=== PATIENT | male | born 1960 | race Caucasian/White ===

== ENCOUNTER 2025-02-26 08:23 | Outpatient (CLI) | payer OTHER, SELFPAY ==
--- NOTE | ~2025-02-26 | PE_ITS ---
EXAMINATION: PET_PETPSMAST_PT DATE: 02/26/2025 12:40 INDICATION: Prostate cancer TECHNIQUE: 5.078 mCi of Illucix Ga-68([id number]) was administered i.v. Low dose computed luis graphy (CT) images were acquired from the base of the brain to the base of the brain to the proximal thighs for attenuation correction and anatomic localization. Positron emission tomography (PET) image s were acquired in the same distribution beginning 87 minutes after injection. Images including fused PET/CT images were reconstructed in axial, coronal, and sagittal planes. Automated exposure control technique was employed. The dose-length product was 57600.45mGy-cm. COMPARISON: None FINDINGS: Head/neck: Typical pattern of symmetric physiologic increased activity in the lacrimal, parotid and submandibula r glands as well as along the mucosa of the nasal and oral cavities, pharynx and hypopharynx. No path ologically enlarged cervical lymphadenopathy or suspicious foci of increased uptake in the visualized head or neck. Chest: Lungs are clear with no suspicious pulmonary nodules, pneumonia, pulmonary edema or pleural effusion. Heart size is normal. Small amount of atherosclerotic coronary artery calcification. No pericardial effusion. Thoracic aorta is normal in caliber. Small sliding-type hiatal hernia. No pathologically en larged or PSMA avid thoracic lymphadenopathy. Abdomen/pelvis/proximal thighs: Physiologic renal accumulation and excretion of activity in the kidneys, bladder and along portions o f ureters. Prostatomegaly measuring 6.1 x 5.8 cm with large region of prominent increased uptake invo lving the majority of the right-sided the prostate portion of the left anterior prostate with maximal SUV of 33.1 consistent with primary prostate cancer. Normal degree and slightly heterogenous pattern of increased uptake throughout the liver and spleen without radiologic correlate or dominant PSMA av id lesion. The gallbladder, pancreas and bilateral adrenal glands are normal. Moderate uptake scatter ed throughout the bowels with typical duodenal and proximal jejunal predominance and without radiolog ic correlate, also likely physiologic. Moderate scattered diverticulosis without adjacent comparison to suggest diverticulitis. Normal appendix. Large bilobed fat-containing periumbilical hernia. No oth er abnormal foci of increased uptake or pathologically enlarged lymphadenopathy in the abdomen, pelvi s or proximal thighs. Musculoskeletal: There are bridging osteophytes at multiple levels in the thoracic and upper lumbar spine consistent w ith diffuse idiopathic skeletal hyperostosis (DISH). No suspicious lytic, blastic or abnormally PSMA avid bone lesions. IMPRESSION: 1. Enlarged prostate with large region of homogeneous increased activity involving the majority of th e right side and portions of the left anterior aspect of the prostate consistent with primary prostat e cancer. No evident metastatic disease. Reviewed, dictated and finalized at location A. IMPRESSION: 1. Enlarged prostate with large region of homogeneous increased activity involv ing the majority of the right side and portions of the left anterior aspect of the prostate consistent with primary prostate cancer. No evident metastatic dis ease.
--- OUTSIDE RECORDS SUMMARY | 2025-02-26 08:37 | XMS_ITS | Encounter Summary ---
Author Organization [facility] Address [address] [place] [address] Care Team Providers Care Line Haul Truck Driver Name Role Phone Moreno Vance MD Primary Care Provider [phone] Encounter Details Date Type Department Care Team (Late st Contact Info) Description 02/12/2025 Prep for Procedure [facility] [address] [place], [place] [id number] Celestino Emerson MD [address] [place], [place] [id number] Social History Tobacco Use Types Packs/Day Years Used Date Smoking Tobacco: Never Smokeless Tobacco: Never Alcohol Use Standard Drinks/Week Comments Never 0 (1 standard drink = 0.6 oz pur e alcohol) Sex and Gender Information Value Date Recorded Sex Assigned at Male 02/12/2025 12:04 PM CDT Legal Sex Male 8:22 PM CDT Gender Identity Not on file Sexual Orientation Not on file documented as of this encounter Functional Status * Calculated C-SSRS Risk Score (Lifetime/Recent) Answer Date of Assessment Author Status No Risk Indicated 02/12/2025 12:35 PM CDT Rea Lemus RN Active * [place] Suicide Severity Rating Scale (Screener/Recent Self-Report) Question Answer Date of Assessment Author Status 1. Wish to be (Past 1 Month) No 02/12/2025 12:35 PM CDT Rea Lemus RN Active 2. Non-Specific Active Suicidal Thoughts (Past 1 Month) No 02/12/2025 12:35 PM CDT Rea Lemus, RN Active 6. Suicidal Behavior (Lifetime) No 02/12/2025 12:35 PM CDT Rea Lemus, RN Active documented as of this encounter Plan of Treatment Not on file documented as of this encounter Results * (ABNORMAL) BASIC METABOLIC PANEL (02/12/2025 12:16 PM CDT) [facility] GLUCOSE 105(H) 70 - 99 MG/DL 02/12/2025 12:49 PM CDT [facility] BUN 13 7 - 18 MG/DL 02/12/2025 12:49 PM CDT [facility] CREATININE S/P/B 0.99 0.7 - 1.3 MG/DL 02/12/2025 12:49 PM CDT [facility] SODIUM S/P/B 136 136 - 145 MMOL/L 02/12/2025 12:49 PM CDT [facility] POTASSIUM S/P/B 4.1 3.5 - 5.1 MMOL/L 02/12/2025 12:49 PM CDT [facility] CHLORIDE S/P/B 105 97 - 115 MMOL/L 02/12/2025 12:49 PM CDT [facility] CO2 25.9 21 - 32 MMOL/L 02/12/2025 12:49 PM CDT [facility] CALCIUM S/P/B 9.9 8.5 - 10.1 MG/DL 02/12/2025 12:49 PM CDT [facility] ANION GAP 5.1 2 - 10 MMOL/L 02/12/2025 12:49 PM CDT [facility] BUN CREATININE RATIO 13.1 6 - 26 02/12/2025 12:49 PM CDT [facility] GFR ESTIMATE 85(L) >90 ML/MIN/1.7 3 M2 02/12/2025 12:49 PM CDT [facility] Comment: NOTE: eGFR is not calculated for patients <18 years of age or gender unknown. This is an estimated GFR calculation using the new CKD EPI creatinine equation without race and so does not require a correction factor for race. This estimated GFR should not be used for calculating drug doses. 02/12/2025 12:1 6 PM CDT [facility] Final R esult [facility] [address] [place] [address], documented in this encounter Visit Diagnoses Diagnosis Preoperative testing- Primary Preoperative examination, unspecified documented in this encounter Care Teams Line Haul Truck Driver Relationship Specialty Start Date End Date Moreno Vance MD [facility] [[email or web address]] [address] [place] [phone] PCP - General FAMILY PRACTICE 02/11/25 documented as of this encounter
--- OUTSIDE RECORDS SUMMARY | 2025-02-26 08:37 | XMS_ITS | Clinical Summary ---
Author Organization [facility] Address [address] [place] [address] Care Team Providers Care Singer And Unloader Name Role Phone Moreno Vance MD Primary Care Provider [phone] Allergies Active Allergy Reactions Criticality Noted Date Comments Penicillins Unknown 02/06/2025 Medications amLODIPine (NORVASC) 5 MG tablet Take 1 tablet (5 mg total) by mouth 2 (two) times a day. Active furosemide (LASIX) 20 MG tablet Take 1 tablet (20 mg total) by mouth daily. Active potassium chloride CR (KLOR-CON M) 10 MEQ tablet Take 1 tablet (10 mEq total) by mouth daily. Active Active Problems No known active problems Encounters Date Type Department Care Team Description 02/12/2025 2:18 PM CDT Anesthesia [place] [address] Mami Braden MD Jackson, Samantha Rae, FNP 02/12/2025 1:51 PM CDT - 02/12/2025 2:43 PM CDT Surgery [facility] [place] [address] Elaine Betts MD TRANSRECTAL ULTRASOUND GUIDED PROSTATE BIOPSY 02/12/2025 12:08 PM CDT - 02/12/2025 3:35 PM CDT Hospital Encounter [facility] [place] [address] Elaine Betts MD Discharge Disposition: Home or Self Care (Routine Discharge) 02/12/2025 Travel 02/12/2025 Prep for Procedure [facility] [place] [address] Elaine Betts MD 02/06/2025 Travel from Last 3 Months Social History Tobacco Use Types Packs/Day Years Used Date Smoking Tobacco: Never Smokeless Tobacco: Never Tobacco Cessation:Counseling Given: Not Answered Alcohol Use Standard Drinks/Week Comments Never 0 (1 standard drink = 0.6 oz pur e alcohol) Sex and Gender Information Value Date Recorded Sex Assigned at Male 02/12/2025 12:04 PM CDT Legal Sex Male 8:22 PM CDT Gender Identity Not on file Sexual Orientation Not on file Last Filed Vital Signs Vital Sign Reading Time Taken Comments Blood Pressure 175/91 02/12/2025 3:30 PM CDT Pulse 71 02/12/2025 3:30 PM CDT Temperature 36.4 C (97.5 F) 02/12/2025 3:30 PM CDT Respiratory Rate 18 02/12/2025 3:30 PM CDT Oxygen Saturation 99% 02/12/2025 3:30 PM CDT Inhaled Oxygen Concentration - - Weight 127.9 kg (281 lb 15.5 oz) 2024 12:35 PM CDT Height 165.1 cm (5' 5 ) 02/12/2025 12:3 5 PM CDT Body Mass Index 46.92 02/12/2025 12:35 PM CDT Plan of Treatment Health Maintenance Due Date Last Done Comments Colorectal Cancer Screening Colonoscopy (10 Years) 1960 Annual Physical 1963 Hepatitis C 1978 DTaP, Tdap and Td Vaccines ( 1 - Tdap) 1979 Pneumococcal Vaccine: 50+ Ye ars (1 of 1 - PCV) 2010 Zoster Vaccines (1 of 2) 2010 RSV Immunization or 60+ Years (1 - Risk 60-74 years 1-dose series) 2020 COVID-19 Vaccine ( - 2023-2 5 season) 2024 Meningococcal B Vaccine Aged Out No l onger eligible based on patient's age to complete this topic Meningococcal Vaccine Aged Out No zohra omer eligible based on patient's age to complete this topic RSV Immunizations Under 20 Months Aged Out No longer eligible based on patient's age to complete this topic Procedures Procedure Name Priority Date/Time Associated Diagnosis Comments BIOPSY OF PROSTATE,NEEDLE/P [facility] 02/12/2025 2:16 PM CDT PSA ELEVATION R97.20 Case Notes SCHED BY FAX ON 02/05/25 [facility] PHONE [facility]ESS Special Needs [facility] [phone] BASIC METABOLIC PANEL Routine 02/12/2025 12:16 PM CDT Preoperative testing PATHOLOGY Routine 02/12/2025 12:00 AM CDT from Last 3 Months Results * (ABNORMAL) BASIC METABOLIC PANEL (02/12/2025 12:16 PM CDT) GLUCOSE 105(H) 70 - 99 MG/DL 02/12/2025 12:49 PM CDT [facility] BUN 13 7 - 18 MG/DL 02/12/2025 12:49 PM CDT [facility] CREATININE S/P/B 0.99 0.7 - 1.3 MG/DL 02/12/2025 12:49 PM CDT [facility] SODIUM S/P/B 136 136 - 145 MMOL/L 02/12/2025 12:49 PM CDT [facility] POTASSIUM S/P/B 4.1 3.5 - 5.1 MMOL/L 02/12/2025 12:49 PM CDT [facility] CHLORIDE S/P/B 105 97 - 115 MMOL/L 02/12/2025 12:49 PM CDT [facility] CO2 25.9 21 - 32 MMOL/L 02/12/2025 12:49 PM CDT [facility] CALCIUM S/P/B 9.9 8.5 - 10.1 MG/DL 02/12/2025 12:49 PM CDT [facility] ANION GAP 5.1 2 - 10 MMOL/L 02/12/2025 12:49 PM CDT [facility] BUN CREATININE RATIO 13.1 6 - 26 02/12/2025 12:49 PM CDT [facility] GFR ESTIMATE 85(L) >90 ML/MIN/1.7 3 M2 02/12/2025 12:49 PM CDT [facility] Comment: NOTE: eGFR is not calculated for patients <18 years of age or gender unknown. This is an estimated GFR calculation using the new CKD EPI creatinine equation without race and so does not require a correction factor for race. This estimated GFR should not be used for calculating drug doses. 02/12/2025 12:1 6 PM CDT [facility]y [facility] Final R esult [facility] [address] [place] [address], * Pathology (02/12/2025 12:00 AM CDT) PATHOLOGY [facility] Department of Laboratory Medicine [address] [place] [phone] , [id number] Pathology Report Surgical Pathology Report Name: BOGDNA RODRIGUEZ Specimen #: [id number] Age: 2 1960 (Age: 64) Location: [facility] Sex: M Procedure Date: 02/12/2025 Hospital #: [id number] Date Received: 02/13/2025 Date Reported: 02/14/2025 Provider: ELAINE BETTS MD Source: A: Prostate, right lateral base, needle biopsy B: Prostate, right medial base, needle biopsy C: Prostate, right lateral mid, needle biopsy D: Prostate, right medial mid, needle biopsy E: Prostate, right lateral apex, needle biopsy F: Prostate, right medial apex, needle biopsy G: Prostate, left lateral base, needle biopsy H: Prostate, left medial base, needle biopsy I: Prostate, left lateral mid, needle biopsy J: Prostate, left medial mid, needle biopsy K: Prostate, left lateral apex, needle biopsy L: Prostate, left medial apex, needle biopsy Clinical History: PSA elevation. FINAL DIAGNOSIS: A. Prostate, right lateral base, needle biopsy: - Benign prostatic tissue. B. Prostate, right medial base, needle biopsy: - Benign prostatic tissue. C. Prostate, right lateral mid, needle biopsy: - Adenocarcinoma (Luke 3+3=6, grade group 1) involving approximately 30% of the specimen. - No perineural invasion or extraprostatic extension identified. D. Prostate, right medial mid, needle biopsy: - Adenocarcinoma (Luke 3+3=6, grade group 1) involving approximately 50% of the specimen. - No perineural invasion or extraprostatic extension identified. E. Prostate, right lateral apex, needle biopsy: - Adenocarcinoma (Luke 5+3=8, grade group 4) involving approximately 80% of the specimen. - Perineural invasion is present. - No extraprostatic extension identified. F. Prostate, right medial apex, needle biopsy: - Adenocarcinoma (Luke 4+3=7, grade group 3) involving approximately 50% of the specimen. - No perineural invasion or extraprostatic extension identified. G. Prostate, left lateral base, needle biopsy: - Benign prostatic tissue. H. Prostate, left medial base, needle biopsy: - Benign prostatic tissue. I. Prostate, left lateral mid, needle biopsy: - Benign prostatic tissue. J. Prostate, left medial mid, needle biopsy: - Benign prostatic tissue. K. Prostate, left lateral apex, needle biopsy: - Benign prostatic tissue. L. Prostate, left medial apex, needle biopsy: - Benign prostatic tissue. Gross Description: A. Received in formalin, labeled with a patient label and as right lateral base is a single less than 0.1 cm in diameter delicate white-nixon tissue core that has a length of 1.5 cm. The specimen is entirely submitted in cassette A1. B. Received in formalin, labeled with a patient label and as right medial base is a single less than 0.1 cm in diameter delicate white-nixon tissue core that has a length of 1.3 cm. The specimen is entirely submitted in cassette B1. C. Received in formalin, labeled with a patient label and as right lateral mid is a single less than 0.1 cm in diameter delicate white-nixon tissue core has a length of 1.5 cm. The specimen is entirely submitted in cassette C1. D. Received in formalin, labeled with a patient label and as right medial mid is a single less than 0.1 cm in diameter delicate white-nixon tissue core has a length of 1.7 cm. The specimen is entirely submitted in cassette D1. E. Received in formalin, labeled with a patient label and as right lateral apex is a single less than 0.1 cm in diameter delicate white-nixon tissue core that has a length of 1.5 cm. The specimen is entirely submitted in cassette E1. F. Received in formalin, labeled with a patient label and as right medial apex are 2 less than 0.1 cm in diameter delicate white-nixon tissue cores 0.6 and 0.8 cm in length. The specimen is entirely submitted in cassette F1. G. Received in formalin, labeled with a patient label and as left lateral base is a single less than 0.1 cm in diameter delicate white-nixon tissue core that has a length of 1.2 cm. The specimen is entirely submitted in cassette G1. H. Received in formalin, labeled with a patient label and as left medial base is a single less than 0.1 cm in diameter delicate white-nixon tissue core that has a length of 1.8 cm. The specimen is entirely submitted in cassette H1. I. Received in formalin, labeled with a patient label and as left lateral mid is a single less than 0.1 cm in diameter delicate white-nixon tissue core that has a length of 1.3 cm. The specimen is entirely submitted in cassette I1. J. Received in formalin, labeled with a patient label and as left medial mid is a single less than 0.1 cm in diameter delicate white-nixon tissue core has a length of 1.0 cm. The specimen is entirely submitted in cassette J1. K. Received in formalin, labeled with a patient label and as left lateral apex is a single less than 0.1 cm in diameter delicate white-nixon tissue core that has a length of 1.5 cm. The specimen is entirely submitted in cassette K1. L. Received in formalin, labeled with a patient label and as left medial apex are 2 less than 0.1 cm in diameter delicate white-nixon tissue cores 0.3 and 0.7 cm in length. The specimen is entirely submitted in cassette L1. Gross examination (when applicable), interpretation, and sign out were performed at [facility], [address], [place] [address]. Electronically Signed Out IRAIDA FALK MD [facility] TISSUE PROSTATE / Unknown 1:19 PM CDT Tissue specimen (specimen) PROSTATE / Unknown 02/12/2025 1:19 PM CDT Tissue specimen (specimen) PROSTATE / Unknown 02/12/2025 1:19 PM CDT Tissue specimen (specimen) PROSTATE / Unknown 02/12/2025 1:19 PM CDT Tissue specimen (specimen) PROSTATE / Unknown 02/12/2025 1:19 PM CDT Tissue specimen (specimen) PROSTATE / Unknown 02/12/2025 1:19 PM CDT Tissue specimen (specimen) PROSTATE / Unknown 02/12/2025 1:19 PM CDT Tissue specimen (specimen) PROSTATE / Unknown 02/12/2025 1:19 PM CDT Tissue specimen (specimen) PROSTATE / Unknown 02/12/2025 1:19 PM CDT Tissue specimen (specimen) PROSTATE / Unknown 02/12/2025 1:19 PM CDT Tissue specimen (specimen) PROSTATE / Unknown 02/12/2025 1:19 PM CDT Tissue specimen (specimen) PROSTATE / Unknown 02/12/2025 1:19 PM CDT Elaine Betts MD PATHOLOGY/CYTOLOGY ORDERABLES nal Result [facility] [address] [place] [id number], [id number] from Last 3 Months Insurance [facility] Care Teams Singer And Unloader Relationship Specialty Start Date End Date Moreno Vance MD [address] [place] [phone] PCP - General FAMILY PRACTICE 02/11/25
== END 2025-02-26 08:24 | disposition home or self-care (01) ==
PROVIDERS: PCP Family Medicine; Visit Provider Urology
DX: C61 Malignant neoplasm of prostate (principal)
CPT/HCPCS: 78815; A9596

== ENCOUNTER 2025-04-17 07:19 | Outpatient (CLI) | payer OTHER, SELFPAY ==
--- NOTE | ~2025-04-17 | MR_ITS ---
EXAMINATION: MR pelvis wo/w con DATE: 04/17/2025 09:28 INDICATION: Prostate cancer TECHNIQUE: Magnetic resonance imaging (MRI) of the pelvis was performed without and with 20 mL Multih ance intravenous contrast. Fullfield sequences of the pelvis included axial and coronal T2-weighted S S FSE, axial, sagittal and coronal 2D FIESTA, axial 2D FIESTA FS, axial SSFSE-IR SANTIAGO, axial dual-echo T1-weighted FSPGR, axial and coronal T1 weighted LAVA, 3D axial T2 Cube, axial diffusion-weighted SE with apparent diffusion coefficient (ADC) maps. Postcontrast sequences included a time course axial T1-weighted LAVA and sagittal and coronal T1-weighted LAVA. COMPARISON: The [facility]MA PET study dated 02/26/2025 FINDINGS: The prostate has significantly decreased in size, currently measuring 5.0 x 3.9 cm versus previously measuring 6.1 x 5.9 cm likely reflecting response to treatment. There are couple foci of susceptibili ty artifact bilaterally in the posterior peripheral zone which could represent fiducial markers, surg ical clips or radiotherapy stroke bladder is normal. Visualized portions of the bowels are unremarkab le. No pathologically enlarged pelvic or inguinal lymphadenopathy. Bone marrow signal is normal with no abnormally enhancing lesions identified. IMPRESSION: 1. Mild prostatomegaly, decreased in size since the prior study consistent with interval response to treatment of known prostate cancer. No evident metastatic disease. Reviewed, dictated and finalized at location A.
--- OUTSIDE RECORDS SUMMARY | 2025-04-17 07:23 | XMS_ITS | Encounter Summary ---
Author Organization [facility] Address [address] [place] [address] Care Team Providers Care Harness Inspector Name Role Phone Moreno Vance MD Primary Care Provider [phone] Encounter Details Date Type Department Care Team (Late st Contact Info) Description 02/12/2025 Prep for Procedure [facility] [address] [place], [place] [id number] Celestino Emerson MD [address] [place], [place] [id number] Social History Tobacco Use Types Packs/Day Years [...] PM CDT Rea Lemus RN Active * [place] Suicide Severity Rating Scale (Screener/Recent Self-Report) Question [...] BASIC METABOLIC PANEL (02/12/2025 12:16 PM CDT) [facility] GLUCOSE 105(H) 70 - 99 MG/DL 02/12/2025 12:49 PM CDT [facility] BUN 13 7 - 18 MG/DL 02/12/2025 12:49 PM CDT [facility] CREATININE S/P/B 0.99 0.7 - 1.3 MG/DL 02/12/2025 12:49 PM CDT [facility] SODIUM S/P/B 136 136 - 145 MMOL/L 02/12/2025 12:49 PM CDT [facility] POTASSIUM S/P/B 4.1 3.5 - 5.1 MMOL/L 02/12/2025 12:49 PM CDT [facility] CHLORIDE S/P/B 105 97 - 115 MMOL/L 02/12/2025 12:49 PM CDT [facility] CO2 25.9 21 - 32 MMOL/L 02/12/2025 12:49 PM CDT [facility] CALCIUM S/P/B 9.9 8.5 - 10.1 MG/DL 02/12/2025 12:49 PM CDT [facility] ANION GAP 5.1 2 - 10 MMOL/L 02/12/2025 12:49 PM CDT [facility] BUN CREATININE RATIO 13.1 6 - 26 02/12/2025 12:49 PM CDT [facility] GFR ESTIMATE 85(L) >90 ML/MIN/1.7 3 M2 02/12/2025 12:49 PM CDT [facility] Comment: NOTE: eGFR is not calculated for patients <18 years of age or gender unknown. This is an estimated GFR calculation using the new CKD EPI creatinine equation without race and so does not require a correction factor for race. This estimated GFR should not be used for calculating drug doses. 02/12/2025 12:1 6 PM CDT Susy [facility] Final R esult [facility] [address] [place] [address], documented in this encounter Visit Diagnoses Diagnosis Preoperative testing- Primary Preoperative examination, unspecified documented in this encounter Care Teams Harness Inspector Relationship Specialty Start Date End Date Moreno Vance MD [facility] [address] [place] [phone] PCP - General FAMILY PRACTICE 02/11/25 documented as of this encounter
--- OUTSIDE RECORDS SUMMARY | 2025-04-17 07:23 | XMS_ITS | Clinical Summary ---
Author Organization [facility] Address [address] [place] [address] Care Team Providers Care Surgical Supplies Sterilizer Name Role Phone Moreno Vance MD Primary Care Provider Allergies Active Allergy Reactions Criticality Noted Date [...] Description 02/12/2025 2:18 PM CDT Anesthesia [place] [address] Mami Braden MD Jackson, Samantha Rae, FNP 02/12/2025 1:51 PM CDT - 02/12/2025 2:43 PM CDT Surgery [place] [address] Elaine Betts MD TRANSRECTAL ULTRASOUND GUIDED PROSTATE BIOPSY 02/12/2025 12:08 PM CDT - 02/12/2025 3:35 PM CDT Hospital Encounter [facility] [place] [address] Elaine Betts MD Discharge Disposition: Home or Self Care (Routine Discharge) 02/12/2025 Travel 02/12/2025 Prep for Procedure [facility] [address] Elaine Betts MD 02/06/2025 Travel from Last [...] 12:35 PM CDT Height 165.1 cm (5' 5) 02/12/2025 12:3 5 PM CDT Body Mass [...] Case Notes SCHED BY FAX ON 02/05/25 [facility] PHONE ASSESS Special Needs [facility] [phone] BASIC METABOLIC PANEL Routine 02/12/2025 12:16 PM CDT Preoperative testing PATHOLOGY Routine 02/12/2025 12:00 AM CDT from Last 3 Months Results * (ABNORMAL) BASIC METABOLIC PANEL (02/12/2025 12:16 PM CDT) GLUCOSE 105(H) 70 - 99 MG/DL 02/12/2025 12:49 PM CDT [facility] BUN 13 7 - 18 MG/DL 02/12/2025 12:49 PM CDT [facility] CREATININE S/P/B 0.99 0.7 - 1.3 MG/DL 02/12/2025 12:49 PM CDT [facility] SODIUM S/P/B 136 136 - 145 MMOL/L 02/12/2025 12:49 PM CDT [facility] POTASSIUM S/P/B 4.1 3.5 - 5.1 MMOL/L 02/12/2025 12:49 PM CDT [facility] CHLORIDE S/P/B 105 97 - 115 MMOL/L 02/12/2025 12:49 PM CDT [facility] CO2 25.9 21 - 32 MMOL/L 02/12/2025 12:49 PM CDT [facility] CALCIUM S/P/B 9.9 8.5 - 10.1 MG/DL 02/12/2025 12:49 PM CDT [facility] ANION GAP 5.1 2 - 10 MMOL/L 02/12/2025 12:49 PM CDT [facility] BUN CREATININE RATIO 13.1 6 - 26 02/12/2025 12:49 PM CDT [facility] GFR ESTIMATE 85(L) >90 ML/MIN/1.7 3 M2 02/12/2025 12:49 PM CDT [facility] Comment: NOTE: eGFR is not calculated for patients <18 years of age or gender unknown. This is an estimated GFR calculation using the new CKD EPI creatinine equation without race and so does not require a correction factor for race. This estimated GFR should not be used for calculating drug doses. 02/12/2025 12:1 6 PM CDT Susy Royal [facility] Final R esult [facility] [address] [place] [address], * Pathology (02/12/2025 12:00 AM CDT) PATHOLOGY [facility] Department of Laboratory Medicine [address] [place] [id number] , [email or web address] [id number] Pathology Report Surgical Pathology Report Name: BOGDAN RODRIGUEZ Specimen #: [id number] Age: 2 1960 (Age: 64) Location: [facility] Sex: M Procedure Date: 02/12/2025 Hospital #: [id number] Date Received: 02/13/2025 Date Reported: 02/14/2025 Provider: [...] right lateral apex, needle biopsy: - Adenocarcinoma (Cambridge 5+3=8, grade group 4) involving approximately 80% of the specimen. - Perineural invasion is present. - No extraprostatic extension identified. F. Prostate, right medial apex, needle biopsy: - Adenocarcinoma (Cambridge 4+3=7, grade group 3) involving approximately 50% [...] interpretation, and sign out were performed at [facility], [address], [place] [address]. Electronically Signed Out IRAIDA FALK MD [facility] TISSUE PROSTATE / Unknown 1:19 [...] Elaine Betts MD PATHOLOGY/CYTOLOGY ORDERABLES nal Result [facility] [address] [place] [id number], [id number] from Last 3 Months Insurance [facility] Care Teams Surgical Supplies Sterilizer Relationship Specialty Start Date End Date Moreno Vance MD [address] [place] [id number] PCP - General FAMILY PRACTICE 02/11/25
--- OUTSIDE RECORDS SUMMARY | 2025-04-17 07:23 | XMS_ITS | Continuity of Care Document ---
Author Organization [place] [facility] Address [address] [address] Assessment No assessment recorded. Plan of Treatment Reminders Order Date Submit Date Provider Last Modified By Organization Details Last Modified Time Details Appointments ANY 2024 07:45A Derik Vance MD Not available Not available Not available ANY 2025 07:30A Derik Vance MD Not available Not available Not available Lab TSH, serum or plasma 2024 025 [email or web address] [facility] (Lab), [address] [place], [address], 04/16/2025 08:32:19 T3, free, serum or plasma 2024 025 [email or web address] [facility] (Lab), [address] [place], [address], 04/16/2025 08:32:19 T4, free, serum 2024 025 [email or web address] [facility] (Lab), [address] [place], [address], 04/16/2025 08:32:19 Referral None recorded. Procedures None recorded. Surgeries None recorded. Imaging None recorded. Medication Orders Norvasc 5 mg tablet 2024 025 [facility], [address] [place] [address], [address], 04/16/2025 08:37:48 furosemid e 20 mg tablet 2024 025 [facility], [address] [place], [address], 04/16/2025 08:37:48 potassium chloride ER 10 mEq tablet,ex tended release 2024 025 [facility], [address] [place], [address], 04/16/2025 08:37:48 Patient TargetsNo targets recorded. Patient InstructionsNo instructions recorded. Reason for Referral None Reported. Problems Name Problem SNOMED Code Status Onset Date Resolution Date Notes Provider Name and Address Organization Details Recorded Time Benign essential hypertension 4789308 Active 2022 Moreno Vance MD Attn: Rex gastelum,[address] [facility], [place], [address], [place] [facility] 3 10:22:21 Morbid obesity 051224218 Active 2022 Moreno Vance MD Attn: Michellein g,[address] [facility], [place], [address], [place] [facility] 3 10:22:22 Osteoarthritis of knee 845885943 Active 2022 Moreno Vance MD Attn: Michellein g,[address] [facility], [place], [address], [place] [facility] 3 09:10:33 Bilateral lower leg edema 362316350 Active 2023 Moreno Vance MD Attn: Michellein g,[address] [facility], [place], [address], [place] [facility] 4 08:30:22 Body mass index 40+ - severely obese 347661907 Active 2024 Moreno Vance MD Attn: Rex g,[address] [facility], [place], [address], [place] [facility] 5 08:26:55 Malignant neoplasm of prostate 241835642 Active 2024 Moreno Vance MD Attn: Rex gastelum,[address], [place], [address], [facility] 5 08:27:39 Problem Notes None recorded. Procedures Surgical History Date Name Laterality Status Provider Name and Address Organization Details Recorded Time Hernia Repair completed Olga Colon RN [facility] 12/09/2022 10:01:15 Imaging Results None recorded. Procedure Notes None recorded. Medical Equipment None Reported. Allergies Allergen ID Allergen Name Allergen Category Reaction Reaction Severity Criticality Documentation Date Start Date Code Code System Note Provider Name and Address Organization Details Recorded Time 340183 Product containin g penicilli n (product) medicatio n Not available Not available Not available 12/09/2022 30678 8001 SNOMED not sure of react ion Olga Colon RN null, [facility] 3 09:56:18 Medications Name Sig Start Date Stop Date Status Note LastModified by Organization Details LastModified Time doxycycline hyclate 100 mg capsule TAKE 1 CAPSULE BY MOUTH TWICE A DAY FOR 10 DAYS 12/09 completed Not Available Not Available Not Available clindamycin HCl 300 mg capsule TAKE ONE CAPSULE BY MOUTH EVERY 6 HOURS 07/19 completed Not Available Not Available Not Available ibuprofen 800 mg tablet Take 1 tablet 3 times a day by oral route as needed for 30 days. 07/15 completed Not Available Not Available Not Available prednisone 20 mg tablet TAKE 2 TABLETS BY MOUTH EVERY DAY FOR 5 DAYS 12/09 completed Not Available Not Available Not Available clindamycin HCl 150 mg capsule 01/18 completed Not Available Not Available Not Available potassium chloride ER 10 mEq tablet,exte nded release Take 1 tablet every day by oral route for 90 days. 2024 active Not Available Not Available Not Avai lable triamcinolo ne acetonide 40 mg/mL suspension for injection Take 120 mg by injection route. 04/16 completed Not Available Not Available Not Available Norvasc 5 mg tablet Take 1 tablet twice a day by oral route in the morning for 90 days. 2024 active Not Available Not Available Not Avai lable furosemide 20 mg tablet Take 1 tablet every day by oral route for 90 days. 2024 active Not Available Not Available Not Avai lable albuterol sulfate HFA 90 mcg/actuati on aerosol inhaler TAKE 1-2 PUFF(S) (INHALATI ON) EVERY 4 HOURS NEEDED - WHEEZING 12/09 completed Not Available Not Available Not Available Vitals Date Recorded Body height Body mass index (BMI) Body weight Oxygen saturation Oxygen saturation in Arterial blood by Pulse oximetry Heart rate Systolic blood pressure Diastolic blood pressure Provider Name and Address Organization Details Last Updated DateTime 5 167.64 cm 46.8 kg/m2 672651. 79 g 96 % 96 % 77 /min 130 mm[Hg] 92 mm[Hg] Ina Bennett [facility] 5 08:20:09 Social History Question Answer Notes LastModified by [employer] 3d ion Details LastModified Time Tobacco Smoking Status Never Smoker Olga Colon RN [facility], [facility] 12/09/2022 09:52:38 What Is Your Level Of Caffeine Consumption? Occasional Information not available 12/09/2022 What Was The Date Of Your Most Recent Tobacco Screening? 04/16/2025 Information not available 04/16/2025 Has Tobacco Cessation Counseling Been Provided? No Information not available 12/09/2022 Sex: Unknown Functional Status Question Answer Note LastModified by Organizat ion Details LastModified Time Do you use any illicit or recreational drugs? No Information not available 12/09/2022 Do you or have you ever used any other forms of tobacco or nicotine? No Information not available 12/09/2022 What is your level of alcohol consumption? None Information not available 12/09/2022 Mental Status None recorded. Family History Relationship Description Onset Age of this Age Resolved Age Notes LastModified by Organization Details LastModified Time Father Myocardial infarction [email or web address] Not available 12/09 10:00:34 Father Harmful pattern of use of alcohol [email or web address] Not available 2022 10:00:41 Mother Harmful pattern of use of alcohol [email or web address] Not available 12/2023 11:24:21 Mother Diabetes mellitus [email or web address] Not available 12/2023 11:24:34 Medical History Condition Response Coronary Artery Disease N Other N Atrial Fibrillation N High Blood Pressure Y Thyroid Problems N Kidney or Bladder Problems N GI Problems N Depression N COPD N Blood Clots N Eating Disorder N Skin Problems N Anemia N Heart Attack (AR) N Anxiety Disorder N Diabetes N Muscle, Joint, or Bone Problems N Seizures/Epilepsy N Acid Reflux (GERD) N Cancer N Stroke N Asthma N Allergies N ADHD N Substance Abuse N High Cholesterol N Hepatitis N Liver Disease N Schizophrenia N Headaches N Heart Failure N Osteoporosis N Past Encounters Encounter ID Performer Location Encounter Start Date Encounter Closed Date Diagnosis/Indication Diagnosis SNOMED-CT Code Diagnosis ICD10 Code Diagnosis Note [id number] Moreno Vance MD [facility] [place] [facility] [place] [address] [facility] [address] [place] [address] 04/16/2025 08:14:20 04/16/2025 08:39:21 Benign essential hypertension 2487588 I10 condition chronic and at goal with bp at goal with home monitor normal contniue the norvasc 5 mg bid continue the lasix and kcl Body mass index 40+ - severely obese 023903216 E66.01 condition chronic and not at goal start 1800 ada alan diet. start low fat diet order tsh, t3, t4 Osteoarthr itis of knee 961634920 M17.9 condition chroinc and not at goal continue the motrin Bilateral lower leg edema 694785356 R60.0 conditon chronic and at goal order lasix 20 mg and kcl 10 meq per day Malignant neoplasm of prostate 221449964 C61 conditon acute continue treatement with urology Health Concerns Section Related Observation LastModified by Organization Detai ls LastModified Time None Recorded Concern Status LastModified by Organization Details LastModified Time None Recorded Payers Encounter Date Sequence Insurance Name Policy Number Policy Vang Covered Member ID Vang Member ID Guarantor Name 04/16/2025 1 [facility] [id number] Sukhi Craig [id number] Sukhi Craig Notes Date Note Type Note Provider Name and Address Organization Details Recorded Time 04/16/2025 text/html states that the htn is mildly elevated has been watching his diet. the oa in the knees are worse. is being treated from prostate cancer the swelling in the legs is unchanged. Moreno Vance MD Attn: [employer]ing,[address] [place], [address], [place] [facility] 04/16/2025 08:39:18
--- OUTSIDE RECORDS SUMMARY | 2025-04-17 07:23 | XMS_ITS | Data Portability ---
Author Organization [facility] Address [address] [place] [address] Assessment No assessment recorded. Plan of Treatment Reminders Order Date Submit Date Provider Last Modified By Organization Details Last Modified Time Details Appointments ANY 2024 07:45A Derik Vance MD Not available Not available Not available ANY 2025 07:30A Derik Vance MD Not available Not available Not available Lab TSH, serum or plasma [address] (Lab), [address] [place], [address], 04/16/2025 08:32:19 T3, free, serum or plasma [address] (Lab), [address] [place], [address], 04/16/2025 08:32:19 T4, free, serum [address] (Lab), [address] [place], [address], 04/16/2025 08:32:19 PSA, serum or plasma 2024 025 [facility] (Lab), [address], [address], 01/17/2025 08:12:05 lipid panel, serum 2024 025 [facility] (Lab), [address], [place], [address], 01/16/2025 08:55:50 noninvasi ve colorecta l cancer DNA + occult blood screening , QL, stool 2024 025 [facility] (Cologuard Orders Only), [address], [address], [place], [address], 02/05/2025 04:07:52 CBC w/ auto diff 2024 025 [facility] (Lab), [address], [place], [address], 01/16/2025 08:55:43 CMP, serum or plasma 2024 025 [facility] (Lab), [address], [place], [address], 01/16/2025 08:55:49 Referral None recorded. Procedures None recorded. Surgeries None recorded. Imaging None recorded. Medication Orders Norvasc 5 mg tablet 2024 025 [facility], [address] [place] [address], [id number], 04/16/2025 08:37:48 furosemid e 20 mg tablet 2024 025 [facility], [address] [place] [address], [id number], 04/16/2025 08:37:48 potassium chloride ER 10 mEq tablet,ex tended release 2024 025 [facility], [address] [place] [address], [id number], 04/16/2025 08:37:48 triamcino lone acetonide 40 mg/mL suspensio n for injection 2024 025 [email or web address] [facility], [address] [place] [address], [id number], 04/16/2025 08:18:14 triamcino lone acetonide 40 mg/mL suspensio n for injection 2023 [email or web address] Not available 04/16/2025 08:18:14 Norvasc 5 mg tablet 2023 [facility], [address] [place] [address], [address], 07/29/2024 10:05:16 furosemid e 20 mg tablet 2023 024 [facility], [address] [place] [address], [id number], 07/29/2024 10:05:18 potassium chloride ER 10 mEq tablet,ex tended release 2023 024 [facility], [address] [place] [address], [address], 03/26/2025 16:57:13 Norvasc 5 mg tablet 2023 024 [facility], [address] [place] [address], [address], 03/26/2025 16:57:14 furosemid e 20 mg tablet 2023 024 [facility], [address] [place] [address], [address], 03/26/2025 16:57:13 potassium chloride ER 10 mEq tablet,ex tended release 2023 024 [facility], [address] [place] [address], [address], 02/12/2025 17:56:49 ibuprofen 800 mg tablet 2022 024 [facility], [address] [place] [address], [address], 07/15/2024 14:27:38 Norvasc 5 mg tablet 2022 023 [facility], [address] [place] [address], [id number], 08/26/2023 10:17:48 Patient TargetsNo targets recorded. Patient Instructions Encounter Date Encounter Id Patient Instructions Last Modified By Organization Details Last Modified Time 07/19/2023 [id number] A healthy lifestyle: care instructions Not available 07/19/2023 09:27:45 01/17/2024 [id number] A healthy lifestyle: care instructions Not available 01/17/2024 09:11:21 01/15/2025 [id number] A healthy lifestyle: care instructions Not available 01/15/2025 08:47:15 Reason for Referral None Reported. Results Created Date Observation Date Name Description Value Unit Range Abnormal Flag Note LastModifiedBy Organization Detail LastModifiedTime 01/16/2001/15/2025 COMPR EHENS JEFFREY METAB OLIC PANEL sodium 139 mmol/ L 134-14 4 normal Not Available [facility] (Lab) [address] [place], [address], 01/15/2025 22:40:11 01/16/20 25 01/15/2025 COMPR EHENS JEFFREY METAB OLIC PANEL potassium 4.6 mmol/ L 3.5-5. 2 normal Not Available [facility] (Lab) [address] [place], [address], 01/15/2025 22:40:11 01/16/20 25 01/15/2025 COMPR EHENS JEFFREY METAB OLIC PANEL chloride 103 mmol/ L 96-106 normal Not Available [facility] (Lab) [address] [place], [address], 01/15/2025 22:40:11 01/16/20 25 01/15/2025 COMPR EHENS JEFFREY METAB OLIC PANEL carbon dioxide 25 mmol/ L 20-29 normal Not Available [facility] (Lab) [address] [place], [address], 01/15/2025 22:40:11 01/16/20 25 01/15/2025 COMPR EHENS JEFFREY METAB OLIC PANEL anion gap 16.0 mmol/ L Not Available [facility] (Lab) [address] [place], [address], 01/15/2025 22:40:11 01/16/20 25 01/15/2025 COMPR EHENS JEFFERY METAB OLIC PANEL blood urea nitrogen 10 mg/dL 8-27 normal Not Available [facility] (Lab) [address] [place], [address], 01/15/2025 22:40:11 01/16/20 25 01/15/2025 COMPR EHENS JEFFREY METAB OLIC PANEL creatinine 0.91 mg/dL 0.76-1 .27 normal Not Available [facility] (Lab) [address], [place], [address], 01/15/2025 22:40:11 01/16/20 25 01/15/2025 COMPR EHENS JEFFREY METAB OLIC PANEL glomerular filtration rate 94 mL/mi n/1 Not Available [facility] (Lab) [address] [place], [address], 01/15/2025 22:40:11 01/16/20 25 01/15/2025 COMPR EHENS JEFFREY METAB OLIC PANEL BUN creatinine ratio 11 10-24 normal Not Available [facility] (Lab) [address] [place], [address], 01/15/2025 22:40:11 01/16/20 25 01/15/2025 COMPR EHENS JEFFREY METAB OLIC PANEL glucose 135 mg/dL 70-99 high Not Available [facility] (Lab) [address] [place], [address], 01/15/2025 22:40:11 01/16/20 25 01/15/2025 COMPR EHENS JEFFREY METAB OLIC PANEL osmolality calculated 279 280-30 1 low Not Available [facility] (Lab) [address], [address], 01/15/2025 22:40:11 01/16/20 25 01/15/2025 COMPR EHENS JEFFREY METAB OLIC PANEL calcium 9.6 mg/dL 8.6-10 .2 normal Not Available [facility] (Lab) [address], [place], [address], 01/15/2025 22:40:11 01/16/20 25 01/15/2025 COMPR EHENS JEFFREY METAB OLIC PANEL bilirubin total 0.3 mg/dL 0.0-1. 2 normal Not Available [facility] (Lab) [address] [place], [address], 01/15/2025 22:40:11 01/16/20 25 01/15/2025 COMPR EHENS JEFFREY METAB OLIC PANEL AST aspartate aminotransfe rase 18 U/L 0-40 normal Not Available [facility] (Lab) [address] [place], [address], 01/15/2025 22:40:11 01/16/20 25 01/15/2025 COMPR EHENS JEFFREY METAB OLIC PANEL ALT (alanine aminotransfe rase) 17 IU/L 0-44 normal Not Available [facility] (Lab) [address], [place], [address], 01/15/2025 22:40:11 01/16/20 25 01/15/2025 COMPR EHENS JEFFREY METAB OLIC PANEL total protein 7.5 g/dL 6.0-8. 5 normal Not Available [facility] (Lab) [address], [address], 01/15/2025 22:40:11 01/16/20 25 01/15/2025 COMPR EHENS JEFFREY METAB OLIC PANEL albumin level 4.3 g/dL 3.9-4. 9 normal Not Available [facility] (Lab) [address] [place], [address], 01/15/2025 22:40:11 01/16/20 25 01/15/2025 COMPR EHENS JEFFREY METAB OLIC PANEL globulin 3.2 g/dL 1.5-4. 5 normal Not Available [facility] (Lab) [address] [place], [address], 01/15/2025 22:40:11 01/16/20 25 01/15/2025 COMPR EHENS JEFFREY METAB OLIC PANEL albumin globulin ratio 1.0 1.2-2. 2 low Not Available [facility] (Lab) [address] [place], [address], 01/15/2025 22:40:11 01/16/20 25 01/15/2025 COMPR EHENS JEFFREY METAB OLIC PANEL alkaline phosphatase 86 IU/L 44-121 normal Not Available [facility] (Lab) [address] [facility], [place], [address], 01/15/2025 22:40:11 01/16/20 25 01/15/2025 COMPR EHENS JEFFREY METAB OLIC PANEL hemolysis 1 0-19 Not Available [facility] (Lab) [address] [place], [address], 01/15/2025 22:40:11 01/16/20 25 01/15/2025 COMPR EHENS JEFFREY METAB OLIC PANEL icterus 1 0.5-4. 9 Not Available [facility] (Lab) [address] [place], [address], 01/15/2025 22:40:11 01/16/20 25 01/15/2025 COMPR EHENS JEFFREY METAB OLIC PANEL lipemia 12 0-99 Not Available [facility] (Lab) [address] [place], [address], 01/15/2025 22:40:11 01/16/20 25 01/15/2025 LIPID PANEL triglyceride s 101 mg/dL 0-149 normal Not Available [facility] (Lab) [address], [address], 01/15/2025 22:40:11 01/16/20 25 01/15/2025 LIPID PANEL cholesterol 201 mg/dL 100-19 9 high Not Available [facility] (Lab) [address] [place], [address], 01/15/2025 22:40:11 01/16/20 25 01/15/2025 LIPID PANEL LDL cholesterol 129 mg/dL 0-99 high Not Available [facility] (Lab) [address] [place], [address], 01/15/2025 22:40:11 01/16/20 25 01/15/2025 LIPID PANEL VLDL cholesterol (calc) 20 mg/dL 5-40 normal Not Available [facility] (Lab) [address] [place], [address], 01/15/2025 22:40:11 01/16/20 25 01/15/2025 LIPID PANEL HDL cholesterol 56 mg/dL 40-999 normal Not Available [facility] ([facility]) [address] [facility], [place], [address], 01/15/2025 22:40:11 01/16/20 25 01/15/2025 LIPID PANEL LDL HDL ratio 2.3 0-3.6 normal Not Available [facility] (Lab) [address] [facility], [place], [address], 01/15/2025 22:40:11 01/16/20 25 01/15/2025 LIPID PANEL chol HDL ratio 4.0 mg/dL 0-5.0 normal Not Available [facility] (Lab) [address] [place], [address], 01/15/2025 22:40:11 01/16/20 25 01/15/2025 COMPL ETE BLOOD COUNT AUTO DIFF white blood count 10.0 x10e3 /uL 3.4-10 .8 normal Not Available [facility] (Lab) [address] [place], [address], 01/15/2025 23:00:47 01/16/20 25 01/15/2025 COMPL ETE BLOOD COUNT AUTO DIFF red blood count 5.55 x10e6 /uL 4.14-5 .80 normal Not Available [facility] (Lab) [address], [address], 01/15/2025 23:00:47 01/16/20 25 01/15/2025 COMPL ETE BLOOD COUNT AUTO DIFF hemoglobin 15.9 g/dL 13.0-1 7.7 normal Not Available [facility] (Lab) [address], [place], [address], 01/15/2025 23:00:47 01/16/20 25 01/15/2025 COMPL ETE BLOOD COUNT AUTO DIFF hematocrit 49.3 % 37.5-5 1.0 normal Not Available [facility] (Lab) [address] [facility], [place], [address], 01/15/2025 23:00:47 01/16/20 25 01/15/2025 COMPL ETE BLOOD COUNT AUTO DIFF mean corpuscular volume 89 fL 79-97 normal Not Available [facility] (Lab) [address] [facility], [place], [address], 01/15/2025 23:00:47 01/16/20 25 01/15/2025 COMPL ETE BLOOD COUNT AUTO DIFF mean corpuscular hemoglobin 28.6 pg 26.6-3 3.0 normal Not Available [facility] (Lab) [address] [place], [address], 01/15/2025 23:00:47 01/16/20 25 01/15/2025 COMPL ETE BLOOD COUNT AUTO DIFF mean corpuscular HGB conc 32.3 g/dL 31.5-3 5.7 normal Not Available [facility] (Lab) [address] [place], [address], 01/15/2025 23:00:47 01/16/20 25 01/15/2025 COMPL ETE BLOOD COUNT AUTO DIFF red cell distribution width 14.3 % 11.5-1 4.5 normal Not Available [facility] (Lab) [address] [facility], [place], [address], 01/15/2025 23:00:47 01/16/20 25 01/15/2025 COMPL ETE BLOOD COUNT AUTO DIFF platelet count 335 x10e3 /uL 150-45 0 normal Not Available [facility] (Lab) [address] [facility], [place], [address], 01/15/2025 23:00:47 01/16/20 25 01/15/2025 COMPL ETE BLOOD COUNT AUTO DIFF mean platelet volume 10.0 fL 8.9-12 .7 normal Not Available [facility] (Lab) [address] [facility], [place], [address], 01/15/2025 23:00:47 01/16/20 25 01/15/2025 COMPL ETE BLOOD COUNT AUTO DIFF immature granulocytes pct auto 2.3 % not estb. Not Available [facility] (Lab) [address] [place], [address], 01/15/2025 23:00:47 01/16/20 25 01/15/2025 COMPL ETE BLOOD COUNT AUTO DIFF neutrophils percent auto 73 % not estb. Not Available [facility] (Lab) [address] [facility], [place], [address], 01/15/2025 23:00:47 01/16/20 25 01/15/2025 COMPL ETE BLOOD COUNT AUTO DIFF lymphocytes percent auto 15 % not estb. Not Available [facility] (Lab) [address] [facility], [place], [address], 01/15/2025 23:00:47 01/16/20 25 01/15/2025 COMPL ETE BLOOD COUNT AUTO DIFF monocytes percent auto 7 % not estb. Not Available [facility] (Lab) [address] [facility], [place], [address], 01/15/2025 23:00:47 01/16/20 25 01/15/2025 COMPL ETE BLOOD COUNT AUTO DIFF eosinophils percent auto 2 % not estb. Not Available [facility] (Lab) [address], [address], 01/15/2025 23:00:47 01/16/20 25 01/15/2025 COMPL ETE BLOOD COUNT AUTO DIFF basophils percent auto 1 % not estb. Not Available [facility] (Lab) [address] [place], [address], 01/15/2025 23:00:47 01/16/20 25 01/15/2025 COMPL ETE BLOOD COUNT AUTO DIFF neutrophils absolute auto 7.3 x10e3 /uL 1.4-7. 0 high Not Available [facility] (Lab) [address], [place], [address], 01/15/2025 23:00:47 01/16/20 25 01/15/2025 COMPL ETE BLOOD COUNT AUTO DIFF immature granulocytes abs auto 0.2 x10e3 /uL 0.0-0. 1 high Not Available [facility] (Lab) [address], [place], [address], 01/15/2025 23:00:47 01/16/20 25 01/15/2025 COMPL ETE BLOOD COUNT AUTO DIFF lymphocytes absolute auto 1.5 x10e3 /uL 0.7-3. 1 normal Not Available [facility] (Lab) [address] [place], [address], 01/15/2025 23:00:47 01/16/20 25 01/15/2025 COMPL ETE BLOOD COUNT AUTO DIFF monocytes absolute auto 0.7 x10e3 /uL 0.1-0. 9 normal Not Available [facility] (Lab) [address] [place], [address], 01/15/2025 23:00:47 01/16/20 25 01/15/2025 COMPL ETE BLOOD COUNT AUTO DIFF eosinophils absolute auto 0.2 x10e3 /uL 0.0-0. 4 normal Not Available [facility] (Lab) [address] [place], [address], 01/15/2025 23:00:47 01/16/20 25 01/15/2025 COMPL ETE BLOOD COUNT AUTO DIFF basophils absolute auto 0.1 x10e3 /uL 0.0-0. 2 normal Not Available [facility] (Lab) [address] [place], [address], 01/15/2025 23:00:47 01/16/20 25 01/15/2025 COMPL ETE BLOOD COUNT AUTO DIFF nucleated red blood cells auto 0 % 0-0 normal Not Available [facility] (Lab) [address] [place], [address], 01/15/2025 23:00:47 01/16/20 25 01/17/2025 PROST ATE SPECI FIC AG prostate specific Ag 88.8 NG/mL 0.0-4. 0 abnormal Lois ECLIA metho dolog y. Accor ding to the Ameri can Urolo gical Assoc iatio n, Serum PSA shoul d decre ase and remai n at undet ectab le level s after radic al prost atect johnnie. The AUA defin es bioch emica l recur rence as an initi al PSA value 0.2 ng/mL or great er follo wed by a subse quent confi rmato ry PSA value 0.2 ng/mL or great er. Value s obtai suresh with diffe rent assay metho ds or kits canno t be used inter valeor eably . Resul ts canno t be inter prete d as absol andreafski evide nce of the prese nce or absen [facility]. Perfo rmed at: 01 - [facility] [address] [facility], [place] [address] Lab Direc tor: Peterson thomson PhD, Phone : [phone] Not Available [facility] (Lab) [address] [place], [address], 01/17/2025 08:12:05 01/30/20 25 01/29/2025 COLOG UARD cologuard result reportable NEGATI VE negati ve normal The Colog uard (TM) test was perfo rmed on this speci men. NEGAT JEFFREY TEST RESUL T. A negat jeffrey Colog uard resul t indic ates a low likel ihood that a color ectal cance r (CRC) or advan rodolfo adeno ma (carissa omato us polyp s with more advan rodolfo pre-m align ant featu res) is prese nt. The [facility] e that a perso n with a negat jeffrey Colog uard test has a color ectal cance r is less than 1 in 1500 (nega tive predi ctive value >99.9 %) or has an advan rodolfo adeno ma is less than 5.3% (nega tive predi ctive value 94.7% ). These data are based on a prosp ectiv e cross -sect ional study of ,00 0 indiv idual s at [facility] risk for color ectal cance r who were scree suresh with both Colog uard and colon oscop y. (Gopi Carpenter et al, N Engl J Med 2014; 370(1 4):12 86-12 97) The marta l value (refe rence range ) for this assay is negat jeffrey. COLOG UARD RE-SC NATHAN PARRA RECOM MENDA TION: Perio dic color ectal cance r scree norah is an impor tant part of preve ntive healt hcare for asymp tomat ic indiv idual s at [facility] risk for color ectal cance r. Follo wing a negat jeffrey Colog uard resul t, the Ameri can Cance r Socie ty and U.S. Multi -Soci ety Task Force scree norah guide lines recom mend a Colog uard re-sc reeni ng inter [place] of 3 years . Refer ences : Ameri can Cance r Socie ty Guide line for Color ectal Cance r Scree norah: https ://hannah w.can cer.o rg/ca ncer/ colon -rect al-ca ncer/ detec tion- diagn osis- stagi ng/ac s-rec ommen datio ns.julius ml.; Law CHATTERJEE, Paulette BELTRAN, Louis GARCIA, Color ectal Cance r Scree norah: Recom menda tions for Physi cians and Patie nts from the U.S. Multi -Soci ety Task Force on Color ectal Cance r Scree Monie almazan y 2017; 112:1 016-1 030. TEST DESCR IPTIO N: [place] site algor ithmi c jamal sis of stool DNA-b iomar kers with hemog lobin immun oassa y. Quant itati ve value s of indiv idual bioma rkers are not repor table and are not assoc iated with indiv idual bioma rker resul t refer ence range s. Colog uard is inten ded for color ectal cance r scree norah of adult s of eithe r sex, 45 years or older , who are at [facility] for color ectal cance r (CRC) . Colog uard has been appro vic for use by the U.S. FDA. The perfo rmanc e of Colog uard was estab lishe d in a cross secti onal study of [facility] adult s aged 50-84 . Colog uard perfo rmanc e in patie nts ages 45 to 49 years was estim ated by bree-g kirtip jamal sis of near- age group s. Colon oscop ies perfo rmed for a posit jeffrey resul t may find as the most clini janelle signi connor t lesio n: color ectal cance r [4.0% ], advan rodolfo adeno ma (incl uding sessi le yudy yosi polyp s great er than or equal to 1cm diame ter) [20%] or non- advan rodolfo adeno ma [31%] ; or no color ectal neopl benja [45%] . These estim ates are deriv ed from a prosp ectiv e cross -sect ional scree norah study of 10,00 0 indiv idual s at [facility] risk for color ectal cance r who were scree suresh with both Colog uard and colon oscop y. (Gopi Carpenter et al, N Engl J Med 2014; 370(1 4):12 86-12 97.) Colog uard may produ ce a false negat jeffrey or false posit jeffrey resul t (no color ectal cance r or preca ncero us polyp prese nt at colon oscop y follo w up). A negat jeffrey Colog uard test resul t does not guara ntee the absen ce of CRC or advan rodolfo adeno ma (pre- cance r). The curre nt Colog uard scree norah inter [place] is every 3 years . (Amer ican Cance r Socie ty and U.S. Multi -Soci ety Task Force ). Colog uard perfo rmanc e data in a ,00 0 patie nt pivot al study using colon oscop y as the refer ence metho d can be acces sed at the follo wing locat ion: www.e xactl abs.c om/re sults . Addit ional descr iptio n of the Colog uard test proce ss, warni ngs and preca ution s can be found at www.c ologu candace.c om. Not Available [facility] (Cologuard Orders Only) [address], [place], [address], 02/05/2025 04:07:52 02/13/20 25 02/12/2025 Basic metab olic 2000 panel - Serum or Plasm a glucose [mass/volume ] in serum or plasma 105 text: 70 - 99 mg/dL high GLUCO SE 105 (H) 70 - 99 MG/DL 02/12 12:49 PM CDT [facility] Not Available Not Available 02/14/2025 04:45:00 02/13/20 25 02/12/2025 Basic metab olic 2000 panel - Serum or Plasm a urea nitrogen [mass/volume ] in serum or plasma 13 text: 7 - 18 mg/dL BUN 13 7 - 18 MG/DL 02/12 12:49 PM CDT [facility] Not Available Not Available 02/14/2025 04:45:00 02/13/20 25 02/12/2025 Basic metab olic 2000 panel - Serum or Plasm a creatinine [mass/volume ] in serum or plasma 0.99 text: 0.7 - 1.3 mg/dL CREAT ININE S/P/B 0.99 0.7 - 1.3 MG/DL 02/12 12:49 PM CDT [facility] Not Available Not Available 02/14/2025 04:45:00 02/13/20 25 02/12/2025 Basic metab olic 2000 panel - Serum or Plasm a sodium [moles/volum e] in serum or plasma 136 text: 136 - 145 mmol/L SODIU M S/P/B 136 136 - 145 MMOL/ L 02/12 12:49 PM CDT [facility] Not Available Not Available 02/14/2025 04:45:00 02/13/2002/12/2025 Basic metab olic 2000 panel - Serum or Plasm a potassium [moles/volum e] in serum or plasma 4.1 text: 3.5 - 5.1 mmol/L POTAS SIUM S/P/B 4.1 3.5 - 5.1 MMOL/ L 02/12 12:49 PM CDT [facility] Not Available Not Available 02/14/2025 04:45:00 02/13/2002/12/2025 Basic metab olic 2000 panel - Serum or Plasm a chloride [moles/volum e] in serum or plasma 105 text: 97 - 115 mmol/L CHLOR CARLO S/P/B 105 97 - 115 MMOL/ L 02/12 12:49 PM CDT [facility] Not Available Not Available 02/14/2025 04:45:00 02/13/2002/12/2025 Basic metab olic 2000 panel - Serum or Plasm a carbon dioxide, total [moles/volum e] in serum or plasma 25.9 text: 21 - 32 mmol/L CO2 25.9 21 - 32 MMOL/ L 02/12 12:49 PM CDT [facility] Not Available Not Available 02/14/2025 04:45:00 0402/12/2025 Basic metab olic 2000 panel - Serum or Plasm a calcium [mass/volume ] in serum or plasma 9.9 text: 8.5 - 10.1 mg/dL CALCI UM S/P/B 9.9 8.5 - 10.1 MG/DL 02/12 12:49 PM CDT [facility] Not Available Not Available 02/14/2025 04:45:00 02/13/2002/12/2025 Basic metab olic 2000 panel - Serum or Plasm a anion gap in serum or plasma by calculation 5.1 text: 2 - 10 mmol/L ANION GAP 5.1 2 - 10 MMOL/ L 02/12 12:49 PM CDT [facility] Not Available Not Available 02/14/2025 04:45:00 02/13/2002/12/2025 Basic metab olic 2000 panel - Serum or Plasm a urea nitrogen/cre atinine [mass ratio] in serum or plasma 13.1 low: 6high: 26 BUN CREAT ININE RATIO 13.1 6 - 26 02/12 12:49 PM CDT [facility] Not Available Not Available 02/14/2025 04:45:00 02/13/2002/12/2025 Basic metab olic 2000 panel - Serum or Plasm a glomerular filtration rate [volume rate/area] in serum, plasma or blood by creatinine-b ased formula (CKD-epi 2020)/1.73 sq M 85 text: >90 mL/min /1.73 M2 low GFR ESTIM ATE 85 (L) >90 ML/TN N/1.7 3 M2 02/12 12:49 PM CDT [facility] Not Available Not Available 02/14/2025 04:45:00 02/13/2002/12/2025 Basic metab olic 2000 panel - Serum or Plasm a interpretati on and review of laboratory results Abnorm al Not Available Not Available 04:45:00 Result Notes None recorded. Problems Name Problem SNOMED Code Status Onset Date Resolution Date Notes Provider Name and Address Organization Details Recorded Time Benign essential hypertension 5034849 Active 2022 Moreno Vance MD Attn: Rex gastelum,[address] [facility], [place], [address], [place] [facility] 3 10:22:21 Morbid obesity 848678183 Active 2022 Moreno Vance MD Attn: Rex gastelum,[address] [facility], [place], [address], [place] [facility] 3 10:22:22 Osteoarthritis of knee 771010891 Active 2022 Moreno Vance MD Attn: Rex gastelum,[address] [facility], [place], [address], [place] - [facility] 3 09:10:33 Bilateral lower leg edema 993010461 Active 2023 Moreno Vance MD Attn: Rex gastelum,[address] [facility], [place], [address], [place] [facility] 4 08:30:22 Body mass index 40+ - severely obese 075680777 Active 2024 Moreno Vance MD Attn: Rex gastelum,[address] [facility], [place], [address], [place] [facility] 5 08:26:55 Malignant neoplasm of prostate 718780549 Active 2024 Moreno Vance MD Attn: Rex gastelum,[address] [facility], [place], [address], [place] [facility] 5 08:27:39 Problem Notes None recorded. Procedures Surgical History Date Name Laterality Status Provider Name and Address Organization Details Recorded Time Hernia Repair completed Olga Colon RN [facility] 12/09/2022 10:01:15 Imaging Results None recorded. Procedure Notes None recorded. Medical Equipment None Reported. Allergies Allergen ID Allergen Name Allergen Category Reaction Reaction Severity Criticality Documentation Date Start Date Code Code System Note Provider Name and Address Organization Details Recorded Time [id number] Product containin g penicilli n (product) medicatio n Not available Not available Not available 12/09/2022 [id number] SNOMED not sure of react ion Olga Colon RN [facility], [place] - [facility] 3 09:56:18 Medications Name Sig Start Date [...] Arterial blood by Pulse oximetry Heart rate Respiratory rate Body temperature Systolic blood pressure Diastolic blood pressure Provider Name and Address Organization Details Last Updated DateTime 5 167.64 cm 46.3 kg/m2 891595. 01 g 96 % 96 % 90 /min 18 /min 97.7 [degF] 148 mm[Hg] 98 mm[Hg] Olga Colon RN [place] - [facility] 08:19:17 Date Recorded Body height Body mass index (BMI) Body weight Body temperature Heart rate Oxygen saturation Oxygen saturation in Arterial blood by Pulse oximetry Respiratory rate Systolic blood pressure Diastolic blood pressure Provider Name and Address Organization Details Last Updated DateTime 4 167.64 cm 46.5 kg/m2 172299. 6 g 98.2 [degF] 83 /min 95 % 95 % 18 /min 156 mm[Hg] 94 mm[Hg] Olga Colon RN [facility] 4 08:23:36 Date Recorded Body height Body mass index (BMI) Body weight Oxygen saturation Oxygen saturation in Arterial blood by Pulse oximetry Heart rate Systolic blood pressure Diastolic blood pressure Provider Name and Address Organization Details Last Updated DateTime 5 167.64 cm 46.8 kg/m2 477932. 79 g 96 % 96 % 77 /min 130 mm[Hg] 92 mm[Hg] Inadane Clarosson [facility] 5 08:20:09 Date Recorded Body height Body mass index (BMI) Body weight Oxygen saturation Oxygen saturation in Arterial blood by Pulse oximetry Heart rate Respiratory rate Body temperature Systolic blood pressure Diastolic blood pressure Provider Name and Address Organization Details Last Updated DateTime 4 167.64 cm 46.6 kg/m2 160942. 19 g 96 % 96 % 78 /min 16 /min 97.7 [degF] 150 mm[Hg] 94 mm[Hg] Olga Colon RN [facility] 4 08:18:09 Date Recorded Body height Body mass index (BMI) Body weight Body temperature Oxygen saturation Oxygen saturation in Arterial blood by Pulse oximetry Heart rate Systolic blood pressure Diastolic blood pressure Provider Name and Address Organization Details Last Updated DateTime 3 167.64 cm 46 kg/m2 083048. 83 g 97.8 [degF] 97 % 97 % 79 /min 120 mm[Hg] 70 mm[Hg] Tatiana Finley MA [facility] 3 08:58:32 Social History Question Answer Notes LastModified by Organizat ion Details LastModified Time Tobacco Smoking Status Never Smoker Olga Colon RN null, [facility] 12/09/2022 09:52:38 What Is Your Level Of Caffeine Consumption? Occasional Information not available 12/09/2022 What Was The Date Of Your Most Recent Tobacco Screening? 04/16/2025 [email or web address] Information not available 04/16/2025 Has Tobacco Cessation [...] Response Coronary Artery Disease N Other N High Blood Pressure Y Atrial Fibrillation N Thyroid Problems N Kidney or Bladder Problems N GI Problems N Depression N COPD N Blood Clots N Skin Problems N Eating Disorder N Anemia N Heart Attack (TN) N Anxiety Disorder N Diabetes N Muscle, [...] SNOMED-CT Code Diagnosis ICD10 Code Diagnosis Note [id number] Moreno Vance MD [facility] [address] [place] [address] 12/09/2022 09:41:50 12/12/2022 14:35:08 Benign essential hypertension 6133274 I10 condition chronic and not at goal start norvasc 5 mg per day Morbid obesity 134719881 E66.01 condition chronic and not at goal start 1800 ada alan diet. [id number] Moreno Vance MD [facility] [address] [place] [address] 12/23/2022 16:38:55 12/26/2022 12:49:21 Benign essential hypertension 4411531 I10 condition chronic and not at goal increase the norvasc 5 mg bid Morbid obesity 872138546 E66.01 condition chronic and not at goal start 1800 ada alan diet. [id number] Moreno Vance MD [facility] [address] [place] [address] 01/18/2023 09:35:42 01/19/2023 13:18:33 Benign essential hypertension 8676342 I10 condition chronic and not at goal contniue the norvasc 5 mg bid order cbc, cmp Morbid obesity 198945238 E66.01 condition chronic and not at goal start 1800 ada alan diet. Cholesterol screening 27 5685390 Z13.220 order lipid panel Screening for malignant neoplasm of prostate 389000178 Z12.5 order psa Screening for malignant neoplasm of colon 920269118 Z12.[address] byers [id number] Moreno Vance MD [facility] [address] [place] [address] 07/19/2023 08:53:25 07/20/2023 10:11:20 Benign essential hypertension 6839387 I10 condition chronic and not at goal contniue the norvasc 5 mg bid Osteoarthr itis of knee 013942070 M17.9 condition chroinc and at goal continue the ibuprofin 800 mg tid Morbid obesity 805678193 E66.01 condition chronic and not at goal start 1800 ada alan diet. [id number] Moreno Vance MD [facility] [address] [place] [address] 01/17/2024 08:11:27 01/18/2024 12:11:10 Benign essential hypertension 2767889 I10 condition chronic and not at goal contniue the norvasc 5 mg bid will add water pill Osteoarthr itis of knee 736700094 M17.9 condition chroinc and at goal continue the ibuprofin 800 mg tid Morbid obesity 213857719 E66.01 condition chronic and not at goal start 1800 ada alan diet. Bilateral lower leg edema 876833074 R60.0 conditon chronic and not at goal order lasix 20 mg and kcl 10 meq per day [id number] Moreno Vance MD [facility] [place] [address] [facility] [address] [place] [address] 07/17/2024 07:58:55 07/19/2024 10:33:20 Benign essential hypertension 7082008 I10 condition chronic and at goal with bp at goal with home monitor normal contniue the norvasc 5 mg bid will add water pill has a component of white coat htn Osteoarthr itis of knee 474643842 M17.9 condition chroinc and not at goal injection hte left knee is prepped nad draped in a sterile fashion 1.5 cc of kenalog is mixed with 1.5 cc of lidocaine and the left knee is injected from a lateral approach Bilateral lower leg edema 555094383 R60.0 conditon chronic and not at goal order lasix 20 mg and kcl 10 meq per day Morbid obesity 414095390 E66.01 condition chronic and not at goal start 1800 ada alan diet. start low fat diet [id number] Moreno Vance MD [facility] [place] [address] [address] 01/15/2025 08:04:38 01/20/2025 11:14:21 Benign essential hypertension 8282964 I10 condition chronic and at goal with bp at goal with home monitor normal contniue the norvasc 5 mg bid water pill has a component of white coat htn order cbc, cmp Bilateral lower leg edema 211576578 R60.0 conditon chronic and at goal order lasix 20 mg and kcl 10 meq per day Morbid obesity 160795106 E66.01 condition chronic and not at goal start 1800 ada alan diet. start low fat diet Osteoarthr itis of knee 979381178 M17.9 condition chroinc and not at goal injection bilateral knees hte bilateral knee is prepped nad draped in a sterile fashion 1.5 cc of kenalog is mixed with 1.5 cc of lidocaine and the bilateral knee is injected from a lateral approach Middle ear effusion 1004 412728 H74.8X9 conditoin acute start claritan Cholesterol screening 27 6685951 Z13.220 order lipid panel Screening for malignant neoplasm of prostate 498937162 Z12.5 order psa Screening for malignant neoplasm of colon 658311526 Z12.11 order cologuard [id number] Moreno Vance MD [facility] [address] [facility] [address] [place] [address] 04/16/2025 08:14:20 04/16/2025 08:39:21 Benign essential hypertension 6901919 I10 condition chronic and at goal with bp at goal with home monitor normal contniue the norvasc 5 mg bid continue the lasix and kcl Body mass index 40+ - severely obese 364422129 E66.01 condition chronic and not at goal start 1800 ada alan diet. start low fat diet order tsh, t3, t4 Osteoarthr itis of knee 513484236 M17.9 condition chroinc and not at goal continue the motrin Bilateral lower leg edema 136849646 R60.0 conditon chronic and at goal order lasix 20 mg and kcl 10 meq per day Malignant neoplasm of prostate 183473885 C61 conditon acute continue treatement with urology Health Concerns Section Related Observation LastModified by Organization Detai ls LastModified Time None Recorded Concern Status LastModified by Organization Details LastModified Time None Recorded Advance Directives Directive None Recorded Payers Insurance Date Sequence Insurance Name Policy Number Policy Vang Covered Member ID Vang Member ID Guarantor Name 04/15/2025 1 [facility] [id number] Sukhi Craig [id number] Sukhi Craig Notes Date Note Type Note Provider Name and Address Organization Details Recorded Time 07/19/2023 text/html returns to the office for repeat evaluatoin. states that the bp is under control and has been watching his diet. the oa in the knees is under control. wants to hold off on the labs and the colo Moreno Vance MD Attn: [place], [address], [facility] 07/19/2023 09:29:52 01/17/2024 text/html states that the the blood pressure is mildly elevated the oa int he knees is no better and is taking the ibuprofin. has been watching his diet. has the edema in hte legs. Moreno Vance MD Attn: Accounting,[address] [facility], [place], [address], [facility] 01/17/2024 18:42:03 07/17/2024 text/html states that bp is monitored ad home and is normal has a component of white coat htn the oa in the left knee and it is getting worse. the edema in the legs is under control has been watching his diet to lose weight. Moreno Vance MD Attn: Accounting,[address] [facility], [place], [address], [place] [facility] 07/17/2024 13:48:46 01/15/2025 text/html states that he is having more knee pain hte htn is under control and has been watching his diet. the right ear is painful the edema in the legs is stable Tatiana Finley MA [facility], [place] - [facility] 01/15/2025 09:51:13 04/16/2025 text/html states that the htn is mildly elevated has been watching his diet. the oa in the knees are worse. is being treated from prostate cancer the swelling in the legs is unchanged. Moreno Vance MD Attn: Accounting,[address] [facility], [place], [address], [place] [facility] 04/16/2025 08:39:18
== END 2025-04-17 07:20 | disposition home or self-care (01) ==
PROVIDERS: PCP Family Medicine; Visit Provider Radiology Radiation Oncology
DX: C61 Malignant neoplasm of prostate (principal)
CPT/HCPCS: 72197; A9577

== ENCOUNTER 2025-07-23 08:57 | Outpatient (CLI) | payer OTHER, SELFPAY ==
--- NOTE | ~2025-07-23 | DEXA_ITS ---
Bone Density Report Name: BOGDAN RODRIGUEZ Age: 64 Sex: Male Ethnicity: White Date of : 1960 Indication: cancer; Referring Provider: ELAINE BETTS Study: Bone densitometry was performed. Exam Date: July 23, 2025 Accession number: [id number] Bone Density: Region BMD T-score Z-score Classification AP Spine(L1-L4) 1.027 -0.6 0.2 Normal Femoral Neck (Left) 0.659 -2.0 -1.0 Osteopenia Total Hip (Left) 1.010 -0.2 0.3 Normal Femoral Neck (Right) 0.774 -1.1 -0.1 Osteopenia Total Hip (Right) 1.032 0.0 0.5 Normal Total Hip Mean 1.021 -0.1 0.4 Normal World Health Organization criteria for BMD impression classify patients as: Normal (T-score at or above -1.0), Osteopenia (T-score between -1.0 and -2.5), or Osteoporosis (T-score at or below -2.5). 10-year Fracture Risk(1): Major Osteoporotic Fracture 6.4% Hip Fracture 1.2% Reported Risk Factors: [place] (), Neck BMD=0.659, BMI=44.5 Input outside FRAX(R) limits. Adjusted to:Ofrwsc=734 kg (1) FRAX(R) Version 3.08. Fracture probability calculated for an untreated patient. Fracture probability may be lower if the patient has received treatment. Clinical Information Provided by Patient: Has the following medical conditions: Cancer, prostate cancer Patient maximum height was 66 Does not regularly consume dairy products Impression: The patient has low bone mass, based on the Left Femoral Neck T-score. The patient has an estimated ten-year risk of hip fracture of 1.2% and an estimated ten-year risk of major fracture of 6.4%, based on the WHO FRAX algorithm. Discussion: BONE DENSITY IS LOW AT ONE OR MORE SKELETAL SITES. This patient's lowest T-score is low at one or more skeletal sites. It meets the World Health Organization's (WHO) criteria for ?low bone mass? (T-score between -1.0 and -2.5). The patient's 10-year risk of fracture as calculated by FRAX is less than the threshold where pharmacological therapy is recommended by the National Osteoporosis Foundation (NOF). However, all treatment decisions require clinical judgment and consideration of individual patient factors, including patient preferences, comorbidities, previous drug use, risk factors not captured in the FRAX model (e.g., frailty, falls, vitamin D deficiency, increased bone turnover, interval significant decline in bone density) and possible under or overestimation of fracture risk by FRAX. The patient should follow a healthful lifestyle (good nutrition with adequate calcium and vitamin D, and appropriate weight-bearing exercise). Follow-Up: Consider repeating this study in 2 to 3 years to reassess this patient's status, or sooner if there is some new clinical indication. Reported by: SILVA on 07/23/2025 9:49:00 AM. Reviewed, dictated and finalized at location A.
== END 2025-07-23 08:58 | disposition home or self-care (01) ==
LOC: MICIMG 08:58
PROVIDERS: PCP Urology; Visit Provider Urology
DX: M81.0 Age-related osteoporosis without current pathological fracture (principal); C61 Malignant neoplasm of prostate
CPT/HCPCS: 77080